=== PATIENT | female | born 1990 | race Caucasian/White ===

== ENCOUNTER 2016-08-12 10:30 | Emergency (ER) | payer OTHER ==
[2016-08-12 12:53] VITALS: BP 139/93
--- NOTE | 2016-09-11 22:41 | UC ---
Blaise Miller Aidan, scribed for Christina Prado DO on 08/12/16 at 1239 . Shoulder Pain HPI - HPI Summary HPI Summary: 25 y/o female presents to the Urgent Care with a complaint of acute, constant, [id number]-[id number] (8/10) left shoulder pain described as a sharp, shooting pain that starts in the left side of the neck and radiates down through the left shoulder. Sx began at 2130 last night just after she awkwardly jerked her shoulder while holding a squirming baby. The pain is aggravated by moving the left arm. Ibuprofen did not alleviate any pain. Pt denies any fevers, chills, diaphoresis, abdominal pain, cough, or rashes. - History of Current Complaint Chief Complaint: UCUpperExtremity Stated Complaint: SHOULDER PAIN Time Seen by Provider: 08/12/16 12:13 Hx Obtained From: Patient Hx Last Menstrual Period: 08/10/16 ?: No Onset/Duration: Sudden Onset, Lasting Hours, Still Present Timing: Constant Severity Initially: Moderate Severity Currently: Moderate - [id number] Location Of Pain: Is Discrete @ - left side of neck and left shoulder (see HPI) Pain Intensity: 8 Pain Scale Used: 0-10 Numeric Character: Sharp - sharp shooting pain Aggravating Factor(s): Movement - moving the left shoulder Alleviating Factor(s): Nothing - unknown Associated Signs And Symptoms: Positive: Negative - Risk Factors DVT Risk Factors: Smoking - Allergies/Home Medications Allergies/Adverse Reactions: Allergies Allergy/AdvReac Type Severity Reaction Status Date / Time Shellfish Allergy Allergy Anaphylatic Verified 08/12/16 12:08 Shock Sulfamethoxazole Allergy Dizziness Verified 08/12/16 12:08 w/Trimethoprim [From Bactrim] Home Medications: Home Medications Ibuprofen TAB* [Advil TAB*] 400 mg PO Q6H PRN 08/12/16 [History Confirmed ] PMH/Surg Hx/FS Hx/Imm Hx Endocrine History: Thyroid Disease Respiratory History: Asthma - Surgical History Surgical History: None - Family History Known Family History: Positive: Cardiac Disease, Hypertension, Diabetes - Social History Occupation: Unemployed Lives: With Family Alcohol Use: None Substance Use Type: None Smoking Status (MU): Light Every Day Tobacco Smoker Type: Cigarettes Amount Used/How Often: 1/4 PPD Length of Time of Smoking/Using Tobacco: Since Age 12 Have You Smoked in the Last Year: Yes Household Exposure Type: Cigarettes Cessation Counseling: Patient Advised to Stop - Immunization History Most Recent Influenza Vaccination: Fall 2015 Most Recent Tetanus Shot: 2016 Most Recent Pneumonia Vaccination: never Review of Systems Constitutional: Negative Skin: Negative Eyes: Negative ENT: Negative Respiratory: Negative Cardiovascular: Negative Gastrointestinal: Negative Genitourinary: Negative Motor: Negative Neurovascular: Negative Musculoskeletal: Arthralgia - left shoulder pain Neurological: Negative Psychological: Negative All Other Systems Reviewed And Are Negative: Yes Physical Exam Triage Information Reviewed: Yes Appearance: Well-Appearing, No Pain Distress, Well-Nourished Vital Signs: Initial Vital Signs Temp 97.8 F 08/12/16 12:05 Pulse 108 08/12/16 12:05 Resp 18 08/12/16 12:05 BP 149/103 08/12/16 12:05 Pulse Ox 100 08/12/16 12:05 Vital Signs Reviewed: Yes Eyes: Positive: Conjunctiva Clear. Negative: Discharge ENT: Positive: Hearing grossly normal. Negative: Muffled/hoarse voice Neck exam: Normal Neck: Positive: Supple, Tenderness @ Respiratory: Positive: Lungs clear, Normal breath sounds, No respiratory distress, No accessory muscle use Cardiovascular: Positive: RRR, No Murmur Musculoskeletal Exam: Other - tenderness to palpation of paraspinal muscles, left greater than right, greatest point of tenderness along the left medial boarder of the scapula at the levator scap insertion, no tenderness at the rotator cuff insertions, special tests of the rotator cuff inconclusive due to pain in the neck and shoulder, elbow exam within normal limits, moderate pain distress, strength and sensation intact Musculoskeletal: Positive: Strength Intact Neurological: Positive: Alert, Muscle Tone Normal Psychological Exam: Normal Psychological: Positive: Age Appropriate Behavior Skin Exam: Normal, Other - warm, dry, normal color Shoulder Course/Dx - Course Course Of Treatment: 25 y/o female presents with left shoulder pain. I have encouraged her to stop smoking and she claims that she is in the processes of quitting. High blood pressure is noted. Pt instructed to f/u with pcp on elevated bp. Assessment/Plan: low back strain - Differential Dx/Diagnosis Differential Diagnosis/HQI/PQRI: Sprain Provider Diagnoses: low back strain Discharge - Discharge Plan Condition: Stable Disposition: HOME Prescriptions: Naproxen TAB* [Naprosyn 250 mg TAB*] 500 mg PO BID PRN #20 tab PRN Reason: Pain traMADol TAB* [Ultram*] 50 mg PO Q8H PRN #14 tab MDD 3 TABS PRN Reason: Pain Patient Education Materials: Shoulder Sprain (ED) Referrals: No Primary Care Phys,NOPCP [Primary Care Provider] - Additional Instructions: ANTI-INFLAMMATORY MEDICATION: You have received a prescription for an antiinflammatory agent. This is an excellent, safe drug for pain control. In addition, it has potent antiinflammatory effects which are beneficial, especially in the treatment of injuries, arthritis, or tendonitis. It's best to take this medicine with food. Persons with ulcer disease or allergy to aspirin should notify their physician of this before taking this drug. Take the medication exactly as prescribed. Don't take additional doses unless instructed to do so by your doctor. If you develop wheezing, shortness of breath, hives, faintness, stomach pain, vomiting, or dark black stools, return for re-evaluation at once. ULTRAM (tramadol hydrochloride): Ultram is an excellent drug for pain relief. It is not a narcotic, but it works in a similar way. Ultram can take up to two hours for full effect. Although not addicting, Ultram is best avoided in patients with a history of drug abuse. Ultram should not be used with alcohol, sleeping pills, or narcotics. If you're prone to seizures, Ultram can make you more likely to have a seizure. Ultram can be hazardous when combined with MAO-inhibitor antidepressants (such as Nardil or Parnate). Be sure your doctor is aware of all medicines you are taking. Persons with severe liver or kidney disease should increase the time between doses of Ultram. Discuss this with your doctor if you're uncertain. Side effects of Ultram can include dizziness, nausea, constipation, sleepiness, and itching. (These side effects are also seen with narcotic pain medicines.) Please call your doctor if you have other disturbing effects. Your blood pressure was elevated at the time of your visit. This is likely due to pain. You should follow up with a PCP for further evaluation. FOLLOW-UP CARE: You should establish with a private physician for follow-up care. If you are unable to get a timely appointment, or if you are worsening, call us or return for re-evaluation. An additional resource available to assist in finding the appropriate physician for your health care needs is the Physician Referral Center. You may contact them by calling [phone]. WE HAVE WRITTEN YOU A SCRIPT FOR PHYSICAL THERAPY. YOU WOULD LIKELY BENEFIT FROM OSTEOPATHIC TREATMENT. WE RECOMMEND THAT YOU FIND AN OSTEOPATHIC PHYSICIAN IN YOUR AREA WHO FOCUSES EXCLUSIVELY ON OSTEOPATHIC MANIPULATIVE MEDICINE WITH EXPERTISE IN MYOFACIAL, LYMPHATIC, VISCERAL AND INTEROSSEOUS WORK The documentation as recorded by the Blaise curtis Aidan accurately reflects the service I personally performed and the decisions made by me, Christina Prado DO.
== END 2016-08-12 13:09 | disposition home or self-care (01) ==
LOC: UCEAST 10:30
DX: S39.012A Strain of muscle, fascia and tendon of lower back, initial encounter (principal); X58.XXXA Exposure to other specified factors, initial encounter; Y93.9 Activity, unspecified; Y92.9 Unspecified place or not applicable; M25.512 Pain in left shoulder; E07.9 Disorder of thyroid, unspecified; J45.909 Unspecified asthma, uncomplicated; F17.210 Nicotine dependence, cigarettes, uncomplicated
CPT/HCPCS: 99213; G0463

== ENCOUNTER 2017-04-10 13:39 | Emergency (ER) | payer OTHER ==
[2017-04-10 14:55] VITALS: BP 153/92
--- NOTE | 2017-04-10 16:34 | ED ---
Back Pain - HPI Summary HPI Summary: Patient presents to the ED with right-sided low back pain which extends through the buttocks and down the right leg. Denies bladder or bowel dysfunction. Denies any other urinary symptoms or obstructive symptoms. No history of kidney stones. She states the pain has been present for approximately 1 week, is intermittent and worse with movement, better with rest and stretching. She has not tried any heat. Has been taking ibuprofen 800 mg without relief of symptoms. History of disc protrusions, last CT scan over 10 years ago and has not had any complaints since that time. She has been trying to get to a MRI scan through her PCP but has had a hard time. Denies any numbness, tingling, color or temperature changes. Pulses +2 bilaterally. Cap refill under 2 seconds. - History of Current Complaint Chief Complaint: EDBackInjuryPain Stated Complaint: BACK PAIN Time Seen by Provider: 04/10/17 14:08 Hx Obtained From: Patient Hx Last Menstrual Period: 08/10/16 Onset/Duration: Sudden Onset Onset/Duration: Started Hours Ago Timing: Constant Back Pain Location: Is Discrete @ - Right-sided low back pain Pain Intensity: 8 Pain Scale Used: 0-10 Numeric Character: Aching Aggravating Symptom(s): Lifting, Bending, Walking Alleviating Symptom(s): Heat Associated Signs And Symptoms: Negative: Swelling, Redness, Bruising, Fever, Weakness, Numbness, Abdominal Pain - Risk Factors AAA Risk Factors: Negative TAD Risk Factors: Negative Cauda Equina Risk Factors: Negative Epidural Abscess Risk Factors: Negative - Allergies/Home Medications Allergies/Adverse Reactions: Allergies Allergy/AdvReac Type Severity Reaction Status Date / Time MS Shellfish Allergy Allergy Anaphylatic Verified 08/12/16 12:08 Shock MS Sulfamethoxazole Allergy Dizziness Verified 08/12/16 12:08 w/Trimethoprim [From Bactrim] PMH/Surg Hx/FS Hx/Imm Hx Previously Healthy: Yes Endocrine/Hematology History: Reports: Hx Thyroid Disease Denies: Hx Diabetes Cardiovascular History: Denies: Hx Hypertension Respiratory History: Reports: Hx Asthma Denies: Hx Chronic Obstructive Pulmonary Disease (COPD) GI History: Denies: Hx Ulcer Psychiatric History: Reports: Hx Anxiety, Hx Depression Infectious Disease History: No Infectious Disease History: Denies: Hx Hepatitis, Hx Human Immunodeficiency Virus (HIV), History Other Infectious Disease, Traveled Outside the [place] in Last 30 Days - Social History Occupation: Employed Full-time Lives: With Family Alcohol Use: None Hx Substance Use: No Substance Use Type: Reports: None Hx Tobacco Use: Yes Smoking Status (MU): Light Every Day Tobacco Smoker Type: Cigarettes Amount Used/How Often: 1/4 PPD Length of Time of Smoking/Using Tobacco: Since Age 12 Have You Smoked in the Last Year: Yes Review of Systems Constitutional: Negative Negative: Fever, Chills, Fatigue Eyes: Negative Cardiovascular: Negative Respiratory: Negative Genitourinary: Negative Positive: no symptoms reported, see HPI Positive: Myalgia Skin: Negative Neurological: Negative All Other Systems Reviewed And Are Negative: Yes Physical Exam Triage Information Reviewed: Yes Vital Signs On Initial Exam: Initial Vitals Temp Pulse Resp BP Pulse Ox 97 F 92 16 147/82 97 04/10/17 13:41 04/10/17 13:41 04/10/17 13:41 04/10/17 13:41 04/10/17 13:41 Vital Signs Reviewed: Yes Appearance: Positive: Well-Appearing, Well-Nourished Skin: Positive: Skin Color Reflects Adequate Perfusion Head/Face: Positive: Normal Head/Face Inspection Eyes: Positive: EOMI, MELL, Conjunctiva Clear Neck: Positive: Supple, Nontender, No Lymphadenopathy Respiratory/Lung Sounds: Positive: Clear to Auscultation, Breath Sounds Present Cardiovascular: Positive: RRR, Pulses are Symmetrical in both Upper and Lower Extremities Musculoskeletal: Positive: Pain @ - Right lower back Neurological: Positive: Speech Normal Psychiatric: Positive: Affect/Mood Appropriate AVPU Assessment: Alert Diagnostics - Vital Signs Vital Signs Temp Pulse Resp BP Pulse Ox 04/10/17 14:55 98.2 F 83 16 153/92 98 04/10/17 13:41 97 F 92 16 147/82 97 - Laboratory Lab Statement: Any lab studies that have been ordered have been reviewed, and results considered in the medical decision making process. Back Pain Course/Dx - Course Course Of Treatment: During the course of treatment, the patient is evaluated for sciatica versus piriformis. Versus lumbar radiculopathy. I do not believe at this time a CT of the lumbar spine is warranted as she has had no trauma or other injuries. No bladder or bowel dysfunction. No numbness or tingling. I have offered her muscle relaxers and pain medicine 5 days for pain not well controlled with ibuprofen. She is encouraged massage, moist heat and I have given her referral to Dr. Blackwood (neurosurgery) for worsening or changing symptoms. - Diagnoses Provider Diagnoses: Piriformis syndrome, Sciatica Discharge - Discharge Plan Condition: Stable Disposition: HOME Prescriptions: Cyclobenzaprine TAB* [Flexeril TAB*] 10 mg PO BID PRN #10 tab PRN Reason: Pain traMADol TAB* [Ultram*] 50 mg PO Q8H PRN #15 tab MDD 3 PRN Reason: Pain Patient Education Materials: Sciatica (ED), Piriformis Syndrome (ED) Referrals: Julita Sethi MD [Primary Care Provider] - Keron Blackwood MD [Medical Doctor] - Additional Instructions: Flexeril up to twice daily as a muscle relaxant Tramadol up to 3 times daily for pain Stretch as much as possible Ibuprofen 800 mg 3 times daily for the next 5 days Moist heat to the area Please follow-up with PT. Please follow-up with Dr. Blackwood
== END 2017-04-10 14:54 | disposition home or self-care (01) ==
LOC: ED 13:39
DX: M54.30 Sciatica, unspecified side (principal); F17.210 Nicotine dependence, cigarettes, uncomplicated; Z88.2 Allergy status to sulfonamides
CPT/HCPCS: 99282

== ENCOUNTER 2018-06-02 15:18 | Emergency (ER) | payer OTHER ==
[2018-06-02 15:24] VITALS: BP 149/86
--- NOTE | 2018-06-02 15:41 | UC ---
Hand/Wrist HPI - HPI Summary HPI Summary: C/O left wrist pain x 3 weeks after falling over 2 1/2 yo son. Ongoing pain despite leonora wrap and ice. - History Of Current Complaint Chief Complaint: UCUpperExtremity Stated Complaint: L WRIST INJURY Hx Obtained From: Patient Hx Last Menstrual Period: 06/02/18 ?: No Onset/Duration: Sudden Onset, Lasting Weeks - 3, Still Present Severity Initially: Severe Severity Currently: Moderate Pain Intensity: 7 Character Of Pain: Sharp, Aching, Throbbing Aggravating Factor(s): Movement, Lifting, Flexion, Extension, Internal/External Rotation, Pulling Alleviating Factor(s): Nothing Associated Signs And Symptoms: Positive: Numbness/Tingling - at the tip of the thumb. Negative: Bruising, Fever, Weakness Related History: Dominant Hand Right - Allergies/Home Medications Allergies/Adverse Reactions: Allergies Allergy/AdvReac Type Severity Reaction Status Date / Time shellfish derived Allergy Anaphylatic Verified 06/02/18 15:26 Shock sulfamethoxazole Allergy Dizziness Verified 06/02/18 15:26 PMH/Surg Hx/FS Hx/Imm Hx Endocrine History: Hypothyroidism Respiratory History: Asthma - Surgical History Surgical History: None - Family History Known Family History: Positive: Cardiac Disease, Hypertension, Diabetes - Social History Occupation: Works From/At Home Lives: With Family Alcohol Use: None Substance Use Type: None Smoking Status (MU): Light Every Day Tobacco Smoker Type: Cigarettes Amount Used/How Often: 1/4 PPD Length of Time of Smoking/Using Tobacco: Since Age 12 Have You Smoked in the Last Year: Yes Household Exposure Type: Cigarettes - Immunization History Most Recent Influenza Vaccination: Fall 2015 Most Recent Tetanus Shot: 2016 Most Recent Pneumonia Vaccination: never Review of Systems All Other Systems Reviewed And Are Negative: Yes Musculoskeletal: Positive: Arthralgia - left wrist Is Patient Immunocompromised?: No Physical Exam Triage Information Reviewed: Yes Appearance: Well-Appearing, No Pain Distress - at rest., Well-Nourished Vital Signs: Initial Vital Signs Temp 97.3 F 06/02/18 15:19 Pulse 89 06/02/18 15:19 Resp 14 06/02/18 15:19 BP 149/86 06/02/18 15:19 Pulse Ox 100 06/02/18 15:19 Vital Signs Reviewed: Yes Eyes: Positive: Conjunctiva Clear Respiratory Exam: Normal Cardiovascular Exam: Normal Musculoskeletal: Positive: Strength Limited @ - left wrist, flexion, extension, pronation, supination due to pain, ROM Limited @ - flexion, extension, abduction and adduction., Other: - Tenderness in the snuff box and up the radial side of the forearm. Positive Finkelsteins test Neurological Exam: Normal - but ? slight decreased sensation to sharp on the tip of the left thumb Psychological Exam: Normal Skin Exam: Normal Procedures - Procedure Summary Procedure Summary: Injection left wrist Dequervain's tenosynovitis Consent and time out done. Betadine prep. 2ml injected around the tendon. 0.5ml kenalog and 1.5ml 1% lidocaine. Good pain relief and improved ROM. Hand/Wrist Course/Dx - Differential Dx/Diagnosis Differential Diagnosis/HQI/PQRI: Fracture, Sprain, Strain, Tendonitis, Tenosynovitis Provider Diagnosis: Tenosynovitis, de Quervain, Elevated blood pressure reading Discharge - Sign-Out/Discharge Documenting (check all that apply): Patient Departure All imaging exams completed and their final reports reviewed: Yes - Discharge Plan Condition: Stable Disposition: HOME Patient Education Materials: Tenosynovitis (ED), Cortisone (Injection) Referrals: Julita Sethi MD [Primary Care Provider] - 2 Weeks (recheck blood pressure) Additional Instructions: Smoking Cessation Tricks. 1. Cut down by 1 cigarette per day every 2-3 days. Write the number of smokes for that day on the calendar. 2. Identify triggers to smoking: after meals, on the phone, in the car, with coffee, on breaks at work, etc. 3. Formulate a plan with a behavior to replace the smoking. Fireballs in the car , doodle pad on the phone, flavored creamer for the coffee, go for a walk after a meal or on break at work. 4. For stress smokes do deep breathing relaxation. Breath deep in through the nose hold the breath in for a few seconds then breath out slowly through the mouth. - Billing Disposition and Condition Condition: STABLE Disposition: Home
[2018-06-02] MEDS ORDERED: Lidocaine 1% MPF* 2 ML VIAL INJ ONE (16:16)
[2018-06-02] MEDS ORDERED: Triamcinolone Acetonide* 40 MG/ML 1 ML VIAL INTRAARTIC ONE (16:16)
[2018-06-02] MEDS ORDERED: Lidocaine 2% PF * 5 ML VIAL INJ ONE (16:22)
== END 2018-06-02 16:55 | disposition home or self-care (01) ==
LOC: UCEAST 15:18
DX: M65.4 Radial styloid tenosynovitis [de Quervain] (principal); R03.0 Elevated blood-pressure reading, without diagnosis of hypertension; E03.9 Hypothyroidism, unspecified; J45.909 Unspecified asthma, uncomplicated; Z88.2 Allergy status to sulfonamides; Z91.013 Allergy to seafood; F17.210 Nicotine dependence, cigarettes, uncomplicated
CPT/HCPCS: 20605; 99211; G0463; J3301

== ENCOUNTER 2018-06-28 18:35 | Emergency (ER) | payer OTHER ==
[2018-06-28 19:47] VITALS: BP 126/92
--- NOTE | 2018-06-28 20:08 | UC ---
Dental HPI - HPI Summary HPI Summary: 27-year-old woman comes in with a chief complaint of right facial swelling. Started couple days ago. The worst area of the swelling and the initial swelling started just underneath the jaw on the right side in the area around the submandibular gland. It's also on the lateral aspect of the jaw. Patient does have a decayed upper molar on the right side. She does not feel like this is hurting more than usual. Denies any right lower molar area pain. Pain is worse when she pushes on it. Pain does radiate up to the right ear which feels clogged and down to the right side of the neck. She has been able to swallow she's not short of breath. Feels mildly not well. - History of Current Complaint Chief Complaint: UCRespiratory Stated Complaint: SORE THROAT Time Seen by Provider: 06/28/18 19:37 Hx Last Menstrual Period: 1 week ago Pain Intensity: 4 - Allergies/Home Medications Allergies/Adverse Reactions: Allergies Allergy/AdvReac Type Severity Reaction Status Date / Time shellfish derived Allergy Anaphylatic Verified 06/02/18 15:26 Shock sulfamethoxazole Allergy Dizziness Verified 06/02/18 15:26 PMH/Surg Hx/FS Hx/Imm Hx Previously Healthy: Yes Endocrine History: Hypothyroidism - Surgical History Surgical History: None - Family History Known Family History: Positive: Cardiac Disease, Hypertension, Diabetes - Social History Alcohol Use: None Substance Use Type: None Smoking Status (MU): Light Every Day Tobacco Smoker Type: Cigarettes Amount Used/How Often: 1/4 PPD Length of Time of Smoking/Using Tobacco: Since Age 12 Have You Smoked in the Last Year: Yes Household Exposure Type: Cigarettes - Immunization History Most Recent Influenza Vaccination: Fall 2015 Most Recent Tetanus Shot: 2016 Most Recent Pneumonia Vaccination: never Review of Systems All Other Systems Reviewed And Are Negative: Yes Constitutional: Positive: Negative Skin: Positive: Negative Eyes: Positive: Negative ENT: Positive: Ear Ache, Other - SEE HPI Respiratory: Positive: Negative Cardiovascular: Positive: Negative Gastrointestinal: Positive: Negative Motor: Positive: Negative Neurovascular: Positive: Negative Musculoskeletal: Positive: Negative Neurological: Positive: Negative Psychological: Positive: Negative Is Patient Immunocompromised?: No Physical Exam Triage Information Reviewed: Yes Appearance: Well-Appearing, No Pain Distress, Well-Nourished Vital Signs: Initial Vital Signs Temp 97.8 F 06/28/18 19:44 Pulse 87 06/28/18 19:44 Resp 18 06/28/18 19:44 BP 126/92 06/28/18 19:44 Pulse Ox 97 06/28/18 19:44 Vital Signs Reviewed: Yes Eye Exam: Normal Eyes: Positive: Conjunctiva Clear ENT: Positive: TMs normal, Other - On examination there is swelling right side of the lower jaw and just underneath the jaw. Oral pharynx is open. Tonsils are not swollen. The TMJ is nontender to palpation the parotid gland is nontender to palpation.. Negative: Pharyngeal erythema Dental: Positive: Gross Decay/Caries @ - RT UPPER MOLAR Neck: Positive: Supple Respiratory: Positive: Lungs clear, Normal breath sounds, No respiratory distress Cardiovascular: Positive: RRR Musculoskeletal Exam: Normal Musculoskeletal: Positive: Strength Intact, ROM Intact Neurological Exam: Normal Neurological: Positive: Alert, Muscle Tone Normal Psychological Exam: Normal Psychological: Positive: Age Appropriate Behavior Skin Exam: Normal Dental Complaint Course/Dx - Course Course Of Treatment: Given the location of the swelling the most likely cause is either the submandibular gland being infected or a dental abscess. Can start Augmentin by mouth. Patient will get reevaluated if worse area questions or concerns. - Differential Dx/Diagnosis Provider Diagnosis: Swelling of right side of face Discharge - Sign-Out/Discharge Documenting (check all that apply): Patient Departure All imaging exams completed and their final reports reviewed: No Studies - Discharge Plan Condition: Stable Disposition: HOME Prescriptions: Amoxicillin/Clavulanate TAB* [Augmentin TAB 875*] 875 mg PO BID #20 tab Patient Education Materials: Dental Abscess (ED), Sialoadenitis (ED) Referrals: Julita Sethi MD [Primary Care Provider] - Additional Instructions: FOLLOW UP WITH YOUR DOCTOR IF NOT COMPLETELY IMPROVED. FOLLOW UP WITH YOUR DENTIST. GET REEVALUATED SOONER IF YOUR CONDITION WORSENS OR ANY QUESTIONS OR CONCERNS. - Billing Disposition and Condition Condition: STABLE Disposition: Home
== END 2018-06-28 20:15 | disposition home or self-care (01) ==
LOC: UCEAST 18:35
DX: R22.0 Localized swelling, mass and lump, head (principal); K02.9 Dental caries, unspecified; H92.01 Otalgia, right ear; M54.2 Cervicalgia; E03.9 Hypothyroidism, unspecified; Z88.2 Allergy status to sulfonamides; Z91.013 Allergy to seafood; F17.210 Nicotine dependence, cigarettes, uncomplicated
CPT/HCPCS: 87651; 99212; G0463

== ENCOUNTER 2019-04-07 10:21 | Emergency (ER) | payer OTHER ==
[2019-04-07 11:25] VITALS: BP 133/86
--- NOTE | 2019-04-07 12:56 | UC ---
Hand/Wrist HPI - HPI Summary HPI Summary: Pt presents with c/o left wrist pain that has been gradual onset of left wrist pain. Pt reports that she picks up her young son routinely and has had left wrist pain over the last 3 weeks. Pt states that she was seen by PCP and told she had tendonitis.Pt states that she fell recently from standing height and left wrist pain has worsened. - History Of Current Complaint Chief Complaint: UCUpperExtremity Stated Complaint: L HAND/WRIST INJ, PAIN AND SWELLING Time Seen by Provider: 04/07/19 12:40 Hx Obtained From: Patient Hx Last Menstrual Period: 1 week ago ?: No Onset/Duration: Gradual Onset, Lasting Days, Still Present Severity Initially: Mild Severity Currently: Moderate Pain Intensity: 7 Character Of Pain: Dull, Aching, Throbbing, Stiffness Aggravating Factor(s): Movement, Lifting Alleviating Factor(s): Rest Associated Signs And Symptoms: Positive: Swelling, Weakness Related History: Dominant Hand Right - Risk Factors Compartment Syndrome Risk Factors: Pain - Allergies/Home Medications Allergies/Adverse Reactions: Allergies Allergy/AdvReac Type Severity Reaction Status Date / Time shellfish derived Allergy Anaphylatic Verified 04/07/19 11:17 Shock sulfamethoxazole Allergy Dizziness Verified 04/07/19 11:17 [From Bactrim] trimethoprim [From Bactrim] Allergy Dizziness Verified 04/07/19 11:17 Home Medications: Home Medications Levothyroxine TAB* [Synthroid TAB*] 50 mcg PO DAILY 04/07/19 [History Confirmed 04/07/19] Loratadine [Alavert] 10 mg PO DAILY 04/07/19 [History Confirmed 04/07/19] Lurasidone(*) [Latuda] 40 mg PO DAILY 04/07/19 [History Confirmed 04/07/19] hydrOXYzine HCL TAB* [Atarax 25 MG TAB*] 25 mg PO QID PRN 04/07/19 [History Confirmed 04/07/19] PMH/Surg Hx/FS Hx/Imm Hx Previously Healthy: Yes - Surgical History Surgical History: Yes Surgery Procedure, Year, and Place: - Family History Known Family History: Positive: Cardiac Disease, Hypertension, Diabetes - Social History Occupation: Works From/At Home Lives: With Family Alcohol Use: None Substance Use Type: None Smoking Status (MU): Light Every Day Tobacco Smoker Type: Cigarettes Amount Used/How Often: <1/4 PPD Length of Time of Smoking/Using Tobacco: Since Age 12 Have You Smoked in the Last Year: Yes Household Exposure Type: Cigarettes - Immunization History Most Recent Influenza Vaccination: Fall 2015 Most Recent Tetanus Shot: 2016 Most Recent Pneumonia Vaccination: never Vaccination Up to Date: Yes Review of Systems All Other Systems Reviewed And Are Negative: Yes Constitutional: Positive: Negative Skin: Positive: Negative Eyes: Positive: Negative ENT: Positive: Negative Respiratory: Positive: Negative Cardiovascular: Positive: Negative Gastrointestinal: Positive: Negative Genitourinary: Positive: Negative Motor: Positive: Decreased ROM - left wrist Neurovascular: Positive: Negative Musculoskeletal: Positive: Arthralgia, Decreased ROM, Edema, Myalgia Neurological: Positive: Negative Psychological: Positive: Negative Is Patient Immunocompromised?: No Physical Exam Triage Information Reviewed: Yes Appearance: Well-Appearing, Pain Distress - c/o pain with ROM, and lifting Vital Signs: Initial Vital Signs Temp 98.6 F 04/07/19 11:20 Pulse 108 04/07/19 11:20 Resp 17 04/07/19 11:20 BP 133/86 04/07/19 11:20 Pulse Ox 100 04/07/19 11:20 Vital Signs Reviewed: Yes Eye Exam: Normal ENT Exam: Normal Dental Exam: Normal Neck exam: Normal Respiratory Exam: Normal Respiratory: Positive: No respiratory distress Musculoskeletal: Positive: Strength Limited @ - left wrist, ROM Limited @ - left wrist Neurological Exam: Normal Psychological Exam: Normal Skin Exam: Normal Diagnostics - Radiology No standard instances Radiology Interpretation Completed By: Radiologist - negative for fx Hand/Wrist Course/Dx - Differential Dx/Diagnosis Differential Diagnosis/HQI/PQRI: Dislocation, Fracture, Sprain, Strain, Tendonitis Provider Diagnosis: Left wrist pain Discharge ED - Sign-Out/Discharge Documenting (check all that apply): Patient Departure All imaging exams completed and their final reports reviewed: Yes - Discharge Plan Condition: Stable Disposition: HOME Patient Education Materials: Wrist Injury (ED), R.I.C.E. Treatment (ED), Safe Use of NSAIDs (ED) Referrals: Delfino Jerome MD [Primary Care Provider] - If Needed Benjamín Carlisle MD [Medical Doctor] - If Needed - Billing Disposition and Condition Condition: STABLE Disposition: Home
== END 2019-04-07 12:58 | disposition home or self-care (01) ==
LOC: UCCORT 10:21
DX: M25.532 Pain in left wrist (principal); F17.210 Nicotine dependence, cigarettes, uncomplicated; Z91.013 Allergy to seafood; Z88.2 Allergy status to sulfonamides; Z88.1 Allergy status to other antibiotic agents
CPT/HCPCS: 99212; G0463